=== PATIENT | female | born 1935 | race Caucasian/White ===

== ENCOUNTER → 2023-05-19 06:26 | Day surgery (SDC) | payer MEDICARE, SELFPAY ==
[2023-05-19 13:06] LABS: Glucose - Point of Care 158 mg/dl (70-99)
== END ==
LOC: GI 06:26
PROVIDERS: ATTENDING PHYSICIAN Internal Medicine Gastroenterology
DX: K62.89 Other specified diseases of anus and rectum (principal); K62.5 Hemorrhage of anus and rectum; K64.8 Other hemorrhoids; K57.30 Diverticulosis of large intestine without perforation or abscess without bleeding; D12.2 Benign neoplasm of ascending colon; K52.89 Other specified noninfective gastroenteritis and colitis
CPT/HCPCS: 45385; 45380; 88305; 82962

== ENCOUNTER → 2023-07-07 12:07 | Outpatient (REF) | payer MEDICARE, SELFPAY | LOC: RAD 12:07 | PROVIDERS: ATTENDING PHYSICIAN Internal Medicine Gastroenterology; FAMILY PHYSICIAN Family Medicine | DX: K59.09 Other constipation (principal) | CPT/HCPCS: 74018 ==